=== PATIENT | female | born 1995 | race Caucasian/White ===

== ENCOUNTER → 2016-06-26 | Outpatient (CLI) | payer BC, OTHER ==
[2016-06-26 16:29] LABS: BASOPHILS % (AUTO) 1 % (0-10); EOSINOPHILS # (AUTO) 0.1 10^3/uL (0.0-0.3); EOSINOPHILS % (AUTO) 1 % (0-10); LYMPHOCYTES # (AUTO) 1.6 X 10^3 (1.0-4.0); LYMPHOCYTES % (AUTO) 28 % (12-44); MEAN CORPUSCULAR HEMOGLOBIN 29 PG (25-34); MEAN CORPUSCULAR HGB CONC 35 G/DL (32-36); MEAN CORPUSCULAR VOLUME 83 FL (80-99); MEAN PLATELET VOLUME 10.1 FL (7.4-10.4); MONOCYTES # (AUTO) 0.7 X 10^3 (0.0-1.0); MONOCYTES % (AUTO) 13 % (0-12); NEUTROPHILS # (AUTO) 3.3 X 10^3 (1.8-7.8); NEUTROPHILS % (AUTO) 58 % (42-75); PLATELET COUNT 251 10^3/uL (130-400); RED BLOOD COUNT 5.63 10^6/uL (4.35-5.85); WHITE BLOOD COUNT 5.7 10^3/uL (4.3-11.0)
[2016-06-26 16:48] LABS: ALANINE AMINOTRANSFERASE 23 U/L (0-55); ALBUMIN 4.7 G/DL (3.2-4.5); AMYLASE 47 U/L (25-125); ANION GAP 10 MMOL/L (5-14); ASPARTATE AMINO TRANSFERASE 22 U/L (5-34); BILIRUBIN,TOTAL 0.6 MG/DL (0.1-1.0); BLOOD UREA NITROGEN 8 MG/DL (7-18); BUN/CREATININE RATIO 10; CALCIUM 9.3 MG/DL (8.5-10.1); CARBON DIOXIDE 22 MMOL/L (21-32); CHLORIDE 107 MMOL/L (98-107); GFR ESTIMATED > 60; GLUCOSE 84 MG/DL (70-105); LIPASE 12 U/L (8-78); SODIUM 139 MMOL/L (135-145); TOTAL PROTEIN 7.1 G/DL (6.4-8.2)
== END ==
LOC: LAB 16:10
PROVIDERS: ATTEND Nurse Practitioner
DX: R10.13 Epigastric pain (principal); R11.0 Nausea; R19.7 Diarrhea, unspecified; R10.11 Right upper quadrant pain
CPT/HCPCS: 36415; 80053; 82150; 83690; 85025

== ENCOUNTER → 2016-07-03 | Outpatient (CLI) | payer BC, OTHER ==
--- NOTE | 2016-07-03 22:34 | Diagnostic Imaging Report ---
PROCEDURE: US abdomen complete. TECHNIQUE: Multiple real-time grayscale images were obtained over the abdomen in various projections. INDICATION: Epigastric right upper quadrant pain EXAMINATION: Ultrasound abdomen dated 07/03/2016 FINDINGS: The liver is unremarkable. No mass is appreciated within the liver with no intrahepatic biliary dilatation. The common duct is normal. Pancreas not well seen due to overlying bowel gas. The gallbladder wall is not thickened. No stones appreciated and no pericholecystic fluid is seen. The spleen is unremarkable. The aorta is within normal limits. The IVC obscured by overlying bowel gas. Both kidneys demonstrate normal size and appearance. No hydronephrosis. There is no ascites. IMPRESSION: 1. Unremarkable visualized abdominal structures Dictated by: Dictated on workstation # [id number]
== END ==
LOC: RAD 06:44
PROVIDERS: ATTEND Nurse Practitioner
DX: R10.13 Epigastric pain (principal); R10.11 Right upper quadrant pain; R11.2 Nausea with vomiting, unspecified
CPT/HCPCS: 76700